=== PATIENT | male | born 1985 | race Caucasian/White ===

== ENCOUNTER 2021-07-20 14:40 | Emergency (ER) | payer OTHER ==
[~2021-07-20] VITALS: Ht 180.3 cm; Wt 89.7 kg
--- OUTSIDE RECORDS SUMMARY | 2021-07-20 14:45 | XMS REPORT | Clinical Summary ---
Author Author [facility] Organization [facility] Address Unknown Phone Unavailable Care Team Providers Care Fabric Worker Foreman Name Role Phone Amaris Ling MD PCP Allergies No Known Active Allergies Medications End Date Status Medication Sig Dispensed Refills Start Date Active aspirin 81 MG EC Take 1 tablet 0 tabletIndications: (81 mg total) 8 thrombosis prevention by mouth after PCI, myocardial daily. reinfarction prevention Active nitroglycerin (NITROSTAT) Dissolve 1 25 tablet 3 0.4 MG SL tablet (0.4 9 tabletIndications: angina mg total) under the tongue every 5 (five) minutes as needed for chest pain. May repeat for a total of 3 doses. Active metoprolol succinate TAKE 1 TABLET 90 tablet 3 (TOPROL-XL) 25 MG 24 hr BY MOUTH 1 tablet EVERY DAY 01/20/2022 Active rosuvastatin (CRESTOR) 40 Take 1 tablet 90 tablet 3 MG tabletIndications: (40 mg total) 1 Hyperlipidemia, mixed, by mouth Uncontrolled type 2 daily. diabetes mellitus with hyperglycemia, without long-term current use of insulin (HCC) Active ezetimibe (ZETIA) 10 mg Take 1 tablet 90 tablet 3 tablet (10 mg total) 1 by mouth daily. Active clopidogreL (PLAVIX) 75 Take 1 tablet 90 tablet 1 mg tablet (75 mg total) 1 by mouth daily. Active lisinopriL TAKE 1 TABLET 30 tablet 0 (PRINIVIL,ZESTRIL) 2.5 MG BY MOUTH 1 tablet EVERY DAY 01/03/2022 Active metformin (GLUCOPHAGE-XR) Take 2 360 tablet 1 24 hr tablet 500 tablets 1 mgIndications: type 2 (1,000 mg diabetes mellitus total) by mouth 2 (two) times a day. Active canagliflozin (INVOKANA) Take 1 tablet 90 tablet 1 100 mg tabletIndications: (100 mg 1 type 2 diabetes mellitus total) by mouth daily. 07/04/2021 Discontinued lisinopriL TAKE 1 TABLET 90 tablet 3 (PRINIVIL,ZESTRIL) 2.5 MG BY MOUTH 0 tablet EVERY DAY 07/15/2021 Discontinued canagliflozin (INVOKANA) Take 1 tablet 90 tablet 3 100 mg tabletIndications: (100 mg 0 type 2 diabetes mellitus total) by mouth daily. 07/07/2021 Discontinued metformin (GLUCOPHAGE-XR) Take 2 360 tablet 1 24 hr tablet 500 tablets 1 mgIndications: type 2 (1,000 mg diabetes mellitus total) by mouth 2 (two) times a day. Active Problems Problem Noted Date Anxiety 10/05/2018 Chronic systolic heart failure 10/04/2018 Sleep deprivation 10/04/2018 Anemia 10/04/2018 Uncontrolled type 2 diabetes mellitus with hyperglyce toni, without long-term 09/19/2018 current use of insulin Overview: Formatting of this note might be differ ent from the original. Dx 09/2018 with A1c 9.6%. PIPPA (obstructive sleep apnea) 09/19/2018 Ischemic cardiomyopathy 09/19/2018 History of Wilms' tumor 09/18/2018 S/P coronary angioplasty 09/18/2018 Old VT (myocardial infarction) 09/18/2018 Overview: Formatting of this note might be differ ent from the original. 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 10/04/2018 Acute right ventricular myocardial infarction 09/21/2018 10/04/2018 Essential hypertension 09/19/2018 07/31/2019 Hypokalemia 09/19/2018 10/04/2018 Sinus tachycardia 09/19/2018 07/31/2019 Wilms' tumor 09/18/2018 09/18/[address] elevation myocardial infarction (STEMI) of inferio r wall 09/18/2018 10/04/2018 Elevated glucose 09/18/2018 09/23/2018 Encounters Care Team Description Date Type Specialty Edy Ray MD Medication Refill 07/15/2021 Refill Endocrinology Edy Ray MD Medication Refill 07/07/2021 Refill Endocrinology Jose Qiu MD Medication Refill (lisinopril) 07/02/2021 Refill Cardiology Divina Ortega NP Exposure to COVID-19 virus (Primary Dx); Viral URI with cough 06/25/2021 Office Visit Urgent Care Jose Qiu MD Medication Refill 06/11/2021 Refill Cardiology from Last 3 Months Immunizations Name Administration Dates Next Due Influenza QIV (IM) 08/27/2018 Moderna Sars-cov-2 11/15/2020 Pneumococcal 09/26/2018 Polysaccharide 23-Valent Tdap 01/11/2019 Family History Medical History Relation Name Comments No Known Problems Father Hyperlipidemia Maternal Grandfather Hypertension Maternal Grandfather Stroke Maternal Grandfather Heart failure Maternal Grandmother Hyperlipidemia Maternal Grandmother Hypertension Maternal Grandmother No Known Problems Mother Diabetes Neg Hx Relation Name Status Comments Father Alive Maternal Grandfather Maternal Grandmother Mother Alive Social History Date Tobacco Use Types Packs/Day Years Used Never Smoker Smokeless Tobacco: Never Used Comments Alcohol Use Standard Drinks/Week No 0 (1 standard drink = 0.6 o z pure alcohol) Sex Assigned at Date Recorded Male 05/11/2019 7:51 AM CDT Last Filed Vital Signs Reading Time Taken Comments Vital Sign 118/68 06/25/2021 11:58 AM CDT Blood Pressure 94 06/25/2021 11:58 AM CDT Pulse 36.7 C (98.1 F) 06/25/2021 11:58 AM CDT Temperature 16 06/25/2021 11:58 AM CDT Respiratory Rate 98% 06/25/2021 11:58 AM CDT Oxygen Saturation - - Inhaled Oxygen Concentration 86.2 kg (190 lb) 01/18/2021 2:16 PM CDT Weight 177.8 cm (5' 10") 01/18/2021 2:16 PM CDT Height 27.26 01/18/2021 2:16 PM CDT Body Mass Index Plan of Treatment Care Team Description [place] [address] [address] [facility] [address] [place] [address] [phone] 07/21/2021 Office Visit Endocrinology Health Maintenance Due Date Last Done Comments Diabetes Mellitus 1985 Ophthalmology Exam COVID-19 Vaccine (2 - 12/13/2020 11/15/2020 Moderna 2-dose series) Diabetes Mellitus 07/21/2021 01/18/2021, Hemoglobin A1C 04/22/2020, 07/10/2019, Additional history exists Influenza Vaccine (#1) 2021 09/22/2020, 08/23/2019, 08/27/2018 Diabetes Mellitus Foot 01/18/2022 01/18/2021, Exam 04/22/2020, 07/10/2019, Additional history exists Lipid Screening 01/18/2022 01/18/2021, 01/18/2021, 04/16/2019, Additional history exists Td/Tdap# 01/11/2029 01/11/2019 Pneumococcal Vaccine: 01/08/2048 09/26/2018 Pediatrics (0 to 5 Years) and At-Risk Patients (6 to 64 Years) (2 of 2 - PPSV23) Procedures Comments Procedure Name Priority Date/Time Associated Diag nosis POC COVID PCR - RAPID Routine 06/25/2021 Exposure to COVID-19 12:46 PM CDT virus from Last 3 Months Results * POC COVID PCR - RAPID (06/25/2021 12:46 PM CDT) SARS-CoV-2 PCR Not Detected Not Detected [facility] EXPIRATION DATE 03/21/2022 [facility] Pass [facility] PROCEDURAL CONTROL FOR SEROLOGY KIT LOT NUMBER [id number] [facility] Specimen Swab - NASOPHARYNGEAL SWAB Performing Organization Address City/State/ZIP Code P radha Number [facility] from Last 3 Months Insurance Type Payer Benefit Subscriber ID Effective Phone Address Plan / Dates Group HUMANA HUMANA [id number] 2019-P COMMERCIAL resent PPO POS BLUE CROSS BLUE SHIELD [facility] [id number] PREFERRED resent CARE BLUE Guarantor Name Account Relation to Date of Phone Toño busch Address Type Patient Manuel Montgomery Personal/F Self 1985 [id number] (Home) [place], [place] [address] Manuel Montgomery Personal/F Self 1985 [id number] (Home) [place], [place] [address] Manuel Montgomery Personal/F Self 1985 [id number] (Home) [place], [place] [address] Advance Directives For more information, please contact: [phone] 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
--- OUTSIDE RECORDS SUMMARY | 2021-07-20 14:46 | XMS REPORT | Encounter Summary ---
Author Author [facility] Organization [facility] Address Unknown Phone Unavailable Care Team Providers Care Employment Instructional Associate Name Role Phone Amaris Ling MD PCP Reason for Visit * Reason Comments Concern For Covid-19 Patient to clinic with c/o chest congestion x 48. He reports trying robitussin for symptom management with no relief. He reports productive cough.He denies fever, body ache, chill s, loss of smell or taste, n/v/d. His son tested positive for RSV 1 week ago. Encounter Details Care Team Description Date Type Department Divina Ortega, JOSE ALFREDO [address] [place] [address] [phone] Exposure to COVID-19 virus (Primary Dx); Viral URI with cough 06/25/2021 Office Visit [facility] - [address] [place] [address] Social History Date Tobacco Use Types Packs/Day Years Used Never Smoker Smokeless Tobacco: Never Used Comments Alcohol Use Standard Drinks/Week No 0 (1 standard drink = 0.6 o z pure alcohol) Sex Assigned at Date Recorded Male 05/11/2019 7:51 AM CDT documented as of this encounter Last Filed Vital Signs Reading Time Taken Comments Vital Sign 118/68 06/25/2021 11:58 AM CDT Blood Pressure 94 06/25/2021 11:58 AM CDT Pulse 36.7 C (98.1 F) 06/25/2021 11:58 AM CDT Temperature 16 06/25/2021 11:58 AM CDT Respiratory Rate 98% 06/25/2021 11:58 AM CDT Oxygen Saturation - - Inhaled Oxygen Concentration - - Weight - - Height - - Body Mass Index documented in this encounter Progress Notes * Divina Ortega NP - 06/25/2021 1:30 PM CDT Patient ID: Manuel Montgomery is a 36 y.o. male. Subjective: Patient presents with Concern For Covid-19 (Patient to clinic with c/o chest con gestion x 48. He reports trying robitussin for symptom management with no relief . He reports productive cough.He denies fever, body ache, chills, loss of smell or taste, n/v/d. His son tested positive for RSV 1 week ago. ) HISTORY OF PRESENT ILLNESS: morning cough, Sunday worsening cough. Today throat pain/chest pain fro m coughing. Son has RSV, dx about 10 days ago. Weekend before they werent around any large crowds. History of Wilm's tumor as child with radiation and chemo. Major cardiac event a t age 33 with AL and cardiac arrest. EF down in the 20s at one point. Now EF aristeo ser to 55%. Denies fever, sweats/chills, headache, diarrhea. Reports fatigue, slight sore throat, pleurisy with cough. Problem List: Patient Active Problem List Diagnosis SNOMED CT(R) History of Wilms' tumor HISTORY OF NEPHROBLASTOMA Uncontrolled type 2 diabetes mellitus with hyperglycemia, without long-term current use of insulin (HCC) TYPE II DIABETES MELLITUS UNCONTROLLED PIPPA (obstructive sleep apnea) OBSTRUCTIVE SLEEP APNEA SYNDROME Ischemic cardiomyopathy ISCHEMIC MYOCARDIAL DYSFUNCTION S/P coronary angioplasty PAST HISTORY OF PROCEDURE Coronary artery disease involving koi coronary artery of koi heart COR ONARY ATHEROSCLEROSIS Hyperlipidemia, mixed MIXED HYPERLIPIDEMIA Chronic systolic heart failure (HCC) CHRONIC SYSTOLIC HEART FAILURE Sleep deprivation SLEEP DEPRIVATION Anemia ANEMIA Anxiety ANXIETY Old AL (myocardial infarction) OLD MYOCARDIAL INFARCTION Antiplatelet or antithrombotic long-term use PATIENT ENCOUNTER STATUS Allergies: No Known Allergies Medications: Outpatient Encounter Medications as of 06/25/2021 Medication Sig Dispense Refill aspirin 81 MG EC tablet Take 1 tablet (81 mg total) by mouth daily. canagliflozin (INVOKANA) 100 mg tablet Take 1 tablet (100 mg total) by mouth daily. 90 tablet 3 clopidogreL (PLAVIX) 75 mg tablet Take 1 tablet (75 mg total) by mouth daily . 90 tablet 1 ezetimibe (ZETIA) 10 mg tablet Take 1 tablet (10 mg total) by mouth daily. 9 0 tablet 3 lisinopriL (PRINIVIL,ZESTRIL) 2.5 MG tablet TAKE 1 TABLET BY MOUTH EVERY DAY 90 tablet 3 metformin (GLUCOPHAGE-XR) 24 hr tablet 500 mg Take 2 tablets (1,000 mg total ) by mouth 2 (two) times a day. 360 tablet 1 metoprolol succinate (TOPROL-XL) 25 MG 24 hr tablet TAKE 1 TABLET BY MOUTH E VERY DAY 90 tablet 3 rosuvastatin (CRESTOR) 40 MG tablet Take 1 tablet (40 mg total) by mouth dat ly. 90 tablet 3 nitroglycerin (NITROSTAT) 0.4 MG SL tablet Dissolve 1 tablet (0.4 mg total) under the tongue every 5 (five) minutes as needed for chest pain. May repeat for a total of 3 doses. 25 tablet 3 No facility-administered encounter medications on file as of 06/25/2021. History: Past Medical History: Diagnosis Date Acute ST elevation myocardial infarction (STEMI) of inferior wall (HCC) 08/23 Acute systolic right heart failure (HCC) Anemia Antiplatelet or antithrombotic long-term use Anxiety Chronic systolic heart failure (HCC) Coronary artery disease involving koi coronary artery of [place] heart Sophy's syndrome (HCC) (pericarditis) Essential hypertension History of Wilms' tumor Approx at age 1 y/o- R Kidney, Rx surgery/radiation/chemo (adriamycin) at [facility] Hyperlipidemia, mixed Ischemic cardiomyopathy Old AL (myocardial infarction) 09/18/2018 Acute right ventricular myocardial infarction, late presentation, Cath revealed extensive clot in the right coronary system with 100% burden PIPPA (obstructive sleep apnea) Sinus tachycardia Sleep deprivation Uncontrolled type 2 diabetes mellitus with hyperglycemia, without long-term current use of insulin (HCC) Past Surgical History: Procedure Laterality Date CATHETERIZATION, HEART, BOTH LEFT AND RIGHT N/A 09/19/2018 LM Normal, LAD and LCX without significant stenosis but small, mRCA 100% thromb otic occlusion. RA 13mmHg, RV 29/12, PA 26/18, PCWP 17, Ao 90/60 Denis CO 3.96 LP M, CI 1.86 L/min/m2. CORONARY ANGIOGRAPHY WITH POSSIBLE PCI N/A 09/18/2018 STEMI: Mechanical thrombectomy was performed on the 100% lesion in the mid RCA. Following intervention there was a 30% residual stenosis. LM: Normal. LAD: Mini mal disease. LCX: Minimal disease. RCA: 100% large thrombus burden. Surgeon: Alex Dc MD. KIDNEY SURGERY Right 1982 wilms tumor Family History Problem Relation Age of Onset Stroke Maternal Grandfather Hyperlipidemia Maternal Grandfather Hypertension Maternal Grandfather Hyperlipidemia Maternal Grandmother Hypertension Maternal Grandmother Heart failure Maternal Grandmother No Known Problems Mother No Known Problems Father Diabetes Neg Hx Social History Occupational History Occupation: [employer] Employer: [employer] Tobacco Use Smoking status: Never Smoker Smokeless tobacco: Never Used Substance and Sexual Activity Alcohol use: No Drug use: No Sexual activity: Not on file Review of Systems Constitutional: Positive for activity change and fatigue. Negative for chills an d fever. HENT: Negative for congestion, sinus pressure, sinus pain and sore throat. Respiratory: Positive for cough. Negative for shortness of breath. Cardiovascular: Negative for chest pain. Gastrointestinal: Negative for abdominal pain and diarrhea. Musculoskeletal: Negative for myalgias. Objective: BP 118/68 (BP Location: Left arm, Patient position: Sitting, Cuff size: Medium) | Pulse 94 | Temp 36.7 C (98.1 F) | Resp 16 | SpO2 98% Physical Exam Vitals reviewed. Constitutional: Appearance: Normal appearance. He is ill-appearing. HENT: Head: Normocephalic and atraumatic. Right Ear: Tympanic membrane normal. Left Ear: Tympanic membrane normal. Nose: Nose normal. Mouth/Throat: Pharynx: No posterior oropharyngeal erythema. Eyes: Conjunctiva/sclera: Conjunctivae normal. Cardiovascular: Rate and Rhythm: Normal rate and regular rhythm. Heart sounds: Normal heart sounds. Pulmonary: Effort: Pulmonary effort is normal. No tachypnea or respiratory distress. Breath sounds: Normal breath sounds. Comments: No adventitious sounds, no consolidation. Skin: General: Skin is warm and dry. Neurological: Mental Status: He is alert and oriented to person, place, and time. Psychiatric: Attention and Perception: Attention normal. Mood and Affect: Mood is anxious. Behavior: Behavior normal. Thought Content: Thought content normal. Assessment/Plan: Diagnoses and all orders for this visit: Exposure to COVID-19 virus - POC COVID PCR - RAPID Viral URI with cough Given no signs of consolidation, short history of illness and recent exposure to RSV, no need for Xray. Instructed to take Mucinex DM to control cough and loosen secretion, and increase fluids/rest. If cough persists, becomes productive of sputum, or fever/chills develop, return to clinic for chest Xray. High likelihoo d this is viral in nature. Will send Covid PCR and call with result. Fully vacci nated early 2019, so immunity probably has waned although he is not displaying m any of the usual covid symptoms. With heart history, he is interested in the gyu ster. documented in this encounter Miscellaneous Notes * Krames patient edu - Divina Ortega NP - 06/25/2021 12:25 PM CDT [id number] Viral Upper Respiratory Illness (Adult) You have a viral upper respiratory illness (URI), which is another term for the common cold. This illness is contagious during the first few days. It is spread through the air by coughing and sneezing. It may also be spread by direct contac t (touching the sick person and then touching your own eyes, nose, or mouth). Fr equent handwashing will decrease risk of spread. Most viral illnesses go away wi thin 7 to 10 days with rest and simple home remedies. Sometimes the illness may last for several weeks. Antibiotics will not kill a virus, and they are generall y not prescribed for this condition. Home care ? If symptoms are severe, rest at home for the first 2 to 3 days. When you resu me activity, don't let yourself get too tired. ? Don't smoke. If you need help stopping, talk with your healthcare provider. ? Avoid being exposed to cigarette smoke (yours or others?). ? You may use acetaminophen or ibuprofen to control pain and fever, unless anot her medicine was prescribed. If you have chronic liver or kidney disease, have e ofelia had a stomach ulcer or gastrointestinal bleeding, or are taking blood-thinni ng medicines, talk with your healthcare provider before using these medicines. A spirin should never be given to anyone under 18 years of age who is ill with a v iral infection or fever. It may cause severe liver or brain damage. ? Your appetite may be poor, so a light diet is fine. Stay well hydrated by dri nking 6 to 8 glasses of fluids per day (water, soft drinks, juices, tea, or soup ). Extra fluids will help loosen secretions in the nose and lungs. ? Ucmk-voa-axapulf cold medicines will not shorten the length of time you?re si ck, but they may be helpful for the following symptoms: cough, sore throat, and nasal and sinus congestion. If you take prescription medicines, ask your health are provider or pharmacist which kmbj-kql-pthqnqi medicines are safe to use. (No te: Don't use decongestants if you have high blood pressure.) Follow-up care Follow up with your healthcare provider, or as advised. When to seek medical advice Call your healthcare provider right away if any of these occur: ? Cough with lots of colored sputum (mucus) ? Severe headache; face, neck, or ear pain ? Difficulty swallowing due to throat pain ? Fever of 100.4F (38C) or higher, or as directed by your healthcare provid er Call 911 Call 911 if any of these occur: ? Chest pain, shortness of breath, wheezing, or difficulty breathing ? Coughing up blood ? Very severe pain with swallowing, especially if it goes along with a muffled voice Last Reviewed Date: 03/22/201819993603-6405 [employer]. All rights reserved. This information is not intended as a substitute for professional medical care. Always follow your healthcare professional's instructions. documented in this encounter Plan of Treatment Care Team Description [place] [address] [facility] [address] [address] [phone] 07/21/2021 Office Visit Endocrinology documented as of this encounter Procedures Comments Procedure Name Priority Date/Time Associated Diag nosis POC COVID PCR - RAPID Routine 06/25/2021 Exposure to COVID-19 12:46 PM CDT virus documented in this encounter Results * POC COVID PCR - RAPID (06/25/2021 12:46 PM CDT) SARS-CoV-2 PCR Not Detected Not Detected [facility] EXPIRATION DATE 03/21/2022 [facility] Pass [facility] PROCEDURAL CONTROL FOR SEROLOGY KIT LOT NUMBER [id number] [facility] Specimen Swab - NASOPHARYNGEAL SWAB Performing Organization Address City/State/ZIP Code P radha Number [facility] documented in this encounter Visit Diagnoses Diagnosis Exposure to COVID-19 virus - Primary Viral URI with cough documented in this encounter"
--- OUTSIDE RECORDS SUMMARY | 2021-07-20 14:46 | XMS REPORT | Encounter Summary ---
Author Author [facility] Organization [facility] Address Unknown Phone Unavailable Care Team Providers Care Central Scheduler Name Role Phone Amaris Ling MD PCP Reason for Visit * Reason Comments Medication Refill Encounter Details Care Team Description Date Type Department Jose Qiu MD [address] [place] [address] [phone] Medication Refill 06/11/2021 Refill [facility] [address] [place] [address] Social History Date Tobacco Use Types Packs/Day Years Used Never Smoker Smokeless Tobacco: Never Used Comments Alcohol Use Standard Drinks/Week No 0 (1 standard drink = 0.6 o z pure alcohol) Sex Assigned at Date Recorded Male 05/11/2019 7:51 AM CDT documented as of this encounter Plan of Treatment Care Team Description [place] [address] [facility] [address] [place] [address] [phone] 07/21/2021 Office Visit Endocrinology documented as of this encounter Visit Diagnoses Not on filedocumented in this encounter
--- OUTSIDE RECORDS SUMMARY | 2021-07-20 14:46 | XMS REPORT | Encounter Summary ---
Author Author [facility] Organization [facility] Address Unknown Phone Unavailable Care Team Providers Care Illustrator Set Name Role Phone Amaris Ling MD PCP Reason for Visit * Reason Comments Medication Refill Encounter Details Care Team Description [place] [address] [place], [place] [id number] Medication Refill 07/07/2021 Refill [facility] [address] [place], [place] [id number] Social History Date Tobacco Use Types Packs/Day Years Used Never Smoker Smokeless Tobacco: Never Used Comments Alcohol Use Standard Drinks/Week No 0 (1 standard drink = 0.6 o z pure alcohol) Sex Assigned at Date Recorded Male 05/11/2019 7:51 AM CDT documented as of this encounter Plan of Treatment Care Team Description [place] [address] [place], [place] [id number] 07/21/2021 Office Visit Endocrinology documented as of this encounter Visit Diagnoses Diagnosis Uncontrolled type 2 diabetes mellitus w ith hyperglycemia, without long-term current use of insulin (HCC) documented in this encounter
--- OUTSIDE RECORDS SUMMARY | 2021-07-20 14:46 | XMS REPORT | Encounter Summary ---
Author Author [facility] Organization [facility] Address Unknown Phone Unavailable Care Team Providers Care Anesthesia Tech Name Role Phone Amaris Ling MD PCP Reason for Visit * Reason Comments Medication Refill lisinopril Encounter Details Care Team Description Date Type Department Jose Qiu MD [address] [place] [address] [phone] Medication Refill (lisinopril) 07/02/2021 Refill [facility] [address] [place] [address] Social History Date Tobacco Use Types Packs/Day Years Used Never Smoker Smokeless Tobacco: Never Used Comments Alcohol Use Standard Drinks/Week No 0 (1 standard drink = 0.6 o z pure alcohol) Sex Assigned at Date Recorded Male 05/11/2019 7:51 AM CDT documented as of this encounter Miscellaneous Notes * Telephone Encounter - Janie Maldonado RN - 07/04/2021 2:13 PM CDT Reviewed chart. Pt almost 1 year overdue for annual. JN with Dr. Qiu 0. Called and left detailed message for pt explaining need for f/u for safety. S ent message via [employer] portal. Provided 30 day refill with note to pharmacy that pt needs f/u with cardiology. documented in this encounter Plan of Treatment Care Team Description [place] [id number] [place] [address] [phone] 07/21/2021 Office Visit Endocrinology documented as of this encounter Visit Diagnoses Not on filedocumented in this encounter
[2021-07-20 14:48] VITALS: BP 151/99
[2021-07-20] MEDS ORDERED: ONDANSETRON 4 MG/2 ML (SDV) Z0FRAN IVP STA (15:12)
[2021-07-20] MEDS ORDERED: KETOROLAC 30 MG/ML VIAL IVP STA (15:12)
[2021-07-20] MEDS ORDERED: NS IV 1000 ML 1,000 ML IV STA (15:12)
[2021-07-20 15:42] LABS: BASOPHILS # (AUTO) 0.1 10^3/uL (0.0-0.1); BASOPHILS % (AUTO) 1 % (0-10); EOSINOPHILS # (AUTO) 0.3 10^3/uL (0.0-0.3); EOSINOPHILS % (AUTO) 4 % (0-10); HEMATOCRIT 43 % (40-54); HEMOGLOBIN 14.5 g/dL (13.3-17.7); LYMPHOCYTES # (AUTO) 1.9 X 10^3 (1.0-4.0); LYMPHOCYTES % (AUTO) 22 % (12-44); MEAN CORPUSCULAR HEMOGLOBIN 27 pg (25-34); MEAN CORPUSCULAR HGB CONC 33 g/dL (32-36); MEAN CORPUSCULAR VOLUME 82 fL (80-99); MEAN PLATELET VOLUME 10.9 fL (9.0-12.2); MONOCYTES # (AUTO) 0.6 X 10^3 (0.0-1.0); MONOCYTES % (AUTO) 7 % (0-12); NEUTROPHILS # (AUTO) 5.7 X 10^3 (1.8-7.8); NEUTROPHILS % (AUTO) 67 % (42-75); PLATELET COUNT 183 10^3/uL (130-400); WHITE BLOOD COUNT 8.5 10^3/uL (4.3-11.0)
[2021-07-20 15:43] LABS: INR 0.9 (0.8-1.4); PROTHROMBIN TIME PATIENT 12.6 SEC (12.2-14.7)
--- NOTE | 2021-07-20 15:54 | Diagnostic Imaging Report ---
INDICATION: Hypoglycemia. EXAMINATION: Portable chest at 03:23 p.m. FINDINGS: Heart size and pulmonary vascularity are normal. The patient appears to have had partial right pneumonectomy. There is a small nodular opacity in the right midlung measuring 6 mm in diameter. Left lung is clear. There are no effusions or pneumothoraces. IMPRESSION: Postop changes from partial right pneumonectomy. Small nodular opacity in the right midlung could be a granuloma. Recommend correlation with prior images if available. Alternatively, short-term follow-up recommended. Dictated by: Dictated on workstation # [id number]
[2021-07-20 15:58] LABS: ALANINE AMINOTRANSFERASE 25 U/L (0-55); ALBUMIN 4.7 GM/DL (3.2-4.5); ALKALINE PHOSPHATASE 55 U/L (40-136); BILIRUBIN,TOTAL 0.3 MG/DL (0.1-1.0); BUN/CREATININE RATIO 23; CALCIUM 9.1 MG/DL (8.5-10.1); CARBON DIOXIDE 26 MMOL/L (21-32); CHLORIDE 100 MMOL/L (98-107); GFR ESTIMATED 108; GLUCOSE 166 MG/DL (70-105); POTASSIUM 3.9 MMOL/L (3.6-5.0); SODIUM 137 MMOL/L (135-145); TOTAL PROTEIN 7.5 GM/DL (6.4-8.2)
[2021-07-20 15:59] LABS: LIPASE 15 U/L (8-78)
--- NOTE | 2021-07-20 16:09 | ED General ---
General Chief Complaint: Glucose Problems Stated Complaint: LOW GLUCOSE Source of Information: Patient History of Present Illness Date Seen by Provider: Jul 20, 2021 Time Seen by Provider: 15:22 Initial Comments 36 yo male presenting with complaint of getting sudden headache to right side of head, nausea, vomiting, diaphoresis, and not feeling right. He thought it might be his blood sugar so he tried eating a couple slices of Pizza and a gatorade from [employer] store but had the episode of emesis. He never had any chest pain, shortness of breath, abdominal pain, pain in his arms or legs, numbness or tingling in his arms or legs. 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 He also states he is not drink any water today. On arrival to the ED his sugar was 153. That was about an hour after he had eaten the pizza and drink the Gatorade. He states that he takes Metformin and Victoza for his diabetes. He denies having any head trauma or injury. He has had prior LA with a stent. He states that this does not feel like when he had his LA but he was feeling like something was off so he was concerned about his heart as well as blood sugar as potential causes for his symptoms Severity: Severe Modifying Factors: improves with Rest Associated Systoms: No Chest Pain, No Cough; Diaphoresis; No Fever/Chills; Headaches, Nausea/Vomiting; No Seizure, No Shortness of Air, No Syncope Allergies and Home Medications Allergies Coded Allergies: No Known Drug Allergies (Unverified , 07/20/21) Patient Home Medication List Home Medication List Reviewed: Yes Review of Systems Review of Systems Constitutional: see HPI; No fever EENTM: no symptoms reported; No epistaxis, No nose congestion Respiratory: see HPI; No short of breath Cardiovascular: see HPI; No chest pain, No edema, No palpitations Gastrointestinal: see HPI Genitourinary: no symptoms reported Musculoskeletal: no symptoms reported Skin: no symptoms reported; No rash Psychiatric/Neurological: Headache; Denies Numbness, Denies Paresthesia Past Obclvyh-Boexgm-Vgivkx Hx Past Medical History Surgeries: Yes Cardiac, Coronary Stent Cardiac: Yes Coronary Artery Disease, Heart Attack, High Cholesterol, Hypertension Neurological: No Genitourinary: No Gastrointestinal: No Musculoskeletal: No Endocrine: Yes Diabetes, Non-Insulin dep HEENT: No Physical Exam Vital Signs Vital Signs - First Documented 07/20/21 14:48 Temp 36.4 Pulse 88 Resp 18 B/P (MAP) 151/99 (116) Pulse Ox 96 O2 Delivery Room Air Capillary Refill : Height, Weight, BMI Height: '" Weight: lbs. oz. kg; BMI Method: General Appearance: No Apparent Distress, WD/WN HEENT: PERRL/EOMI, TMs Normal, Normal ENT Inspection, Pharynx Normal Neck: Full Range of Motion, Normal Inspection, Non Tender, Supple Respiratory: Chest Non Tender, Lungs Clear, Normal Breath Sounds, No Accessory Muscle Use, No Respiratory Distress Cardiovascular: Regular Rate, Rhythm, Normal Peripheral Pulses Gastrointestinal: Normal Bowel Sounds, No Pulsatile Mass, Non Tender, Soft Extremity: Normal Capillary Refill, Normal Inspection, No Pedal Edema Neurologic/Psychiatric: Alert, Oriented x3 Skin: Normal Color, Warm/Dry Progress/Results/Core Measures Suspected Sepsis SIRS Temperature: Pulse: Respiratory Rate: Laboratory Tests 07/20/21 15:10: White Blood Count 8.5 Blood Pressure / Mean: Laboratory Tests 07/20/21 15:10: Creatinine 0.80, INR Comment 0.9, Platelet Count 183, Total Bilirubin 0.3 Results/Orders Lab Results Laboratory Tests Test 07/20/21 14:50 07/20/21 15:10 Range/Units Glucometer 153 H 70-110 MG/DL White Blood Count 8.5 4.3-11.0 10^3/uL Red Blood Count 5.32 4.30-5.52 10^6/uL Hemoglobin 14.5 13.3-17.7 g/dL Hematocrit 43 40-54 % Mean Corpuscular Volume 82 80-99 fL Mean Corpuscular Hemoglobin 27 25-34 pg Mean Corpuscular Hemoglobin Concent 33 32-36 g/dL Red Cell Distribution Width 12.5 10.0-14.5 % Platelet Count 183 130-400 10^3/uL Mean Platelet Volume 10.9 9.0-12.2 fL Immature Granulocyte % (Auto) 0 % Neutrophils (%) (Auto) 67 42-75 % Lymphocytes (%) (Auto) 22 12-44 % Monocytes (%) (Auto) 7 0-12 % Eosinophils (%) (Auto) 4 0-10 % Basophils (%) (Auto) 1 0-10 % Neutrophils # (Auto) 5.7 1.8-7.8 X 10^3 Lymphocytes # (Auto) 1.9 1.0-4.0 X 10^3 Monocytes # (Auto) 0.6 0.0-1.0 X 10^3 Eosinophils # (Auto) 0.3 0.0-0.3 10^3/uL Basophils # (Auto) 0.1 0.0-0.1 10^3/uL Immature Granulocyte # (Auto) 0.0 0.0-0.1 10^3/uL Prothrombin Time 12.6 12.2-14.7 SEC INR Comment 0.9 0.8-1.4 Activated Partial Thromboplast Time 27 24-35 SEC Sodium Level 137 135-145 MMOL/L Potassium Level 3.9 3.6-5.0 MMOL/L Chloride Level 100 98-107 MMOL/L Carbon Dioxide Level 26 21-32 MMOL/L Anion Gap 11 5-14 MMOL/L Blood Urea Nitrogen 18 7-18 MG/DL Creatinine 0.80 0.60-1.30 MG/DL Estimat Glomerular Filtration Rate 108 BUN/Creatinine Ratio 23 Glucose Level 166 H 70-105 MG/DL Calcium Level 9.1 8.5-10.1 MG/DL Corrected Calcium 8.5-10.1 MG/DL Magnesium Level 2.0 1.6-2.4 MG/DL Total Bilirubin 0.3 0.1-1.0 MG/DL Aspartate Amino Transf (AST/SGOT) 19 5-34 U/L Alanine Aminotransferase (ALT/SGPT) 25 0-55 U/L Alkaline Phosphatase 55 40-136 U/L Troponin I < 0.30 <0.30 NG/ML Pro-B-Type Natriuretic Peptide 416.0 H <75.0 PG/ML Total Protein 7.5 6.4-8.2 GM/DL Albumin 4.7 H 3.2-4.5 GM/DL Lipase 15 8-78 U/L My Orders Orders - LIZBETH MIGUEL MD Cbc With Automated Diff (07/20/21 15:09) Magnesium (07/20/21 15:09) Chest 1 View Ap/Pa Only (07/20/21 15:09) Ekg Tracing (07/20/21 15:09) Comprehensive Metabolic Panel (07/20/21 15:09) Protime With Inr (07/20/21 15:09) Partial Thromboplastin Time (07/20/21 15:09) O2 (07/20/21 15:09) Monitor-Rhythm Ecg Trace Only (07/20/21 15:09) Ed Iv/Invasive Line Start (07/20/21 15:09) Lipase (07/20/21 15:09) Troponin I Fs (07/20/21 15:09) Probnp Fs (07/20/21 15:09) Ns Iv 1000 Ml (Sodium Chloride 0.9%) (07/20/21 15:12) Ondansetron Injection (Zofran Injectio (07/20/21 15:12) Ketorolac Injection (Toradol Injection) (07/20/21 15:12) Vital Signs/I&O 07/20/21 14:48 Temp 36.4 Pulse 88 Resp 18 B/P (MAP) 151/99 (116) Pulse Ox 96 O2 Delivery Room Air Capillary Refill : Progress Note #1: Progress Note With his Accu-Chek looking okay at 153 will obtain basic labs as well as electrocardiogram and chest x-ray. Give IV fluids for hydration, Toradol for headache, Zofran for nausea. Progress Note #2: Progress Note Labs appear stable no acute significant abnormality. His troponin is negative. Patient reports symptomatic improvement as he is getting fluids and treatment. Counseled on making sure he stays well-hydrated, eating small regular meals to keep his sugar steady, checking back with his regular providers. His chest x- ray did show prior pneumonectomy and a nodule. He was unsure if the nodule had been there previously. He will check with his regular provider about that. ECG Initial ECG Impression Date: Jul 20, 2021 Initial ECG Impression Time: 14:51 Initial ECG Rate: 85 Initial ECG Rhythm: Normal Sinus Initial ECG Comparisson: No Previous ECG Available Comment Normal sinus rhythm with a heart rate of [address] elevation. W[place] interval 185 ms. QT interval 393 ms with a QTc interval 468 ms. He has Q waves in multiple leads but no acute ST elevation and no prior tracing for comparison. Diagnostic Imaging Diagonstic Imaging: Xray Plain Films/CT/US/NM/MRI: chest Comments [facility] [place], [place] NAME: [facility] REC#: [id number] PT STATUS: REG ER : 1985 PHYSICIAN: LIZBETH MIGUEL MD ADMIT DATE: 07/20/21/ER FS Signed Date of Exam:07/20/21 CHEST 1 VIEW AP/PA ONLY INDICATION: Hypoglycemia. EXAMINATION: Portable chest at 03:23 p.m. FINDINGS: Heart size and pulmonary vascularity are normal. The patient appears to have had partial right pneumonectomy. There is a small nodular opacity in the right midlung measuring 6 mm in diameter. Left lung is clear. There are no effusions or pneumothoraces. IMPRESSION: Postop changes from partial right pneumonectomy. Small nodular opacity in the right midlung could be a granuloma. Recommend correlation with prior images if available. Alternatively, short-term follow-up recommended. Dictated by: Dictated on workstation # [id number] Dict: 07/20/21 1548 Trans: 07/20/21 1558 [id number] Interpreted by: DURAN TOMPKINS MD Electronically signed by: DURAN TOMPKINS MD 07/20/21 1558 Reviewed: Reviewed by Me Departure Impression Primary Impression: Headache Qualified Codes: R51.9 - Headache, unspecified Additional Impressions: Hypoglycemic reaction Dehydration Disposition: 01 HOME, SELF-CARE Condition: Improved Departure-Patient Inst. Decision time for Depature: 16:23 Referrals: NO,LOCAL PHYSICIAN (PCP/Family) Primary Care Physician Patient Instructions: Dehydration, Adult ED, Low Blood Sugar, Adult ED, Headache, Adult ED Add. Discharge Instructions: Make sure you are staying well hydrated and drinking plenty of water. Eat small regular meals to help keep your blood sugar more steady. Check back with clinic and your primary providers for continued concerns. Be seen sooner if having worsening problems All discharge instructions reviewed with patient and/or family. Voiced understanding. LIZBETH MIGUEL MD Jul 20, 2021 16:09
== END 2021-07-20 16:45 | disposition home or self-care (01) ==
LOC: ER FS 14:42
DX: R51.9 Headache, unspecified (principal); E11.649 Type 2 diabetes mellitus with hypoglycemia without coma; E86.0 Dehydration; I10 Essential (primary) hypertension; I25.2 Old myocardial infarction
CPT/HCPCS: 36415; 71045; 80053; 82947; 83690; 83735; 83880; 84484; 85025; 85610; 85730; 93005; 93041